=== PATIENT | male | born 1950 | race Caucasian/White ===

== ENCOUNTER 2019-11-26 06:13 | Day surgery (SDC) | payer MEDICARE ==
[~2019-11-26] VITALS: Ht 193 cm; Wt 131.0 kg
[~2019-11-26 06:13] MED LIST: SODIUM CHLORIDE 0.9% 1,000 ML ONE
[2019-11-26] MEDS ORDERED: SODIUM CHLORIDE 0.9% 1,000 ML IV ONE (06:30)
[2019-11-26] MEDS ORDERED: ASPI-556 PO (07:21)
[2019-11-26] MEDS ORDERED: ATOR10TA84 PO (07:21)
[2019-11-26] MEDS ORDERED: MONT10TA21 PO (07:21)
[2019-11-26] MEDS ORDERED: BACL10TA PO (07:21)
[2019-11-26] MEDS ORDERED: BENZ200C53 PO (07:21)
[2019-11-26] MEDS ORDERED: FURO20 PO (07:21)
[2019-11-26] MEDS ORDERED: POTA8TAB71 PO (07:21)
[2019-11-26] MEDS ORDERED: AMLO-258 PO (07:21)
[2019-11-26] MEDS ORDERED: TAMS-13 PO (07:21)
[2019-11-26] MEDS ORDERED: LOSA50TA37 PO (07:21)
[2019-11-26] MEDS ORDERED: METO-558 PO (07:21)
[2019-11-26] MEDS ORDERED: MIDAZOLAM HCL 2 MG/2 ML VIAL ONE (07:55)
[2019-11-26] MEDS ORDERED: FentaNYL CITRATE-PF 100 MCG/2 ML VIAL ONE (07:56)
[2019-11-26] MEDS ORDERED: MethylPREDNISolone SOD SUCC 125 MG/2 ML VIAL ONE (08:54)
[2019-11-26] MEDS ORDERED: MethylPREDNISolone SOD SUCC 125 MG/2 ML VIAL IVP ONE (09:00)
[2019-11-26] MEDS ORDERED: LIDOCAINE 4% 50 ML SOLUTION TP ONE (12:00)
[2019-11-26] MEDS ORDERED: LIDOCAINE 2% 30 ML JELLY TP ONE (12:00)
[2019-11-26] MEDS ORDERED: ALBUTEROL SULFATE 2.5 MG/0.5 ML NEB SOLUTION NEB ONE (12:00)
[2019-11-26] MEDS ORDERED: BENZOCAINE 20% 50 MCG/SPRAY 57 GM TP ONE (12:00)
[2019-11-26] MEDS ORDERED: OXYGEN THERAPY IH SCH (20:00)
== END 2019-11-26 10:30 | disposition home or self-care (01) ==
LOC: SURGERY 06:13
PROVIDERS: ATTEND Internal Medicine Critical Care Medicine
DX: J38.4 Edema of larynx (principal); B37.0 Candidal stomatitis; I10 Essential (primary) hypertension; G47.30 Sleep apnea, unspecified; Z98.890 Other specified postprocedural states
CPT/HCPCS: 31623; 31624; 71045; 87015; 87070; 87101; 87205; 87206; 87220; 88108; 88312; J2250; J2930; J3010; J7030; J7613; Z7610